=== PATIENT | male | born 1945 | race Caucasian/White ===

== ENCOUNTER 2023-08-25 10:09 | Emergency (ER) | payer MEDICARE, OTHER ==
[2023-08-25] MEDS ORDERED: Bacitracin 1 PK ONE (10:40)
[2023-08-25] MEDS ORDERED: Lidocaine 1% (PF) 30 ML VIAL ONE (10:41)
== END 2023-08-25 11:33 | disposition home or self-care (01) ==
LOC: NAV ERS 10:09
DX: S67.196A Crushing injury of right little finger, initial encounter (principal); S62.636A Displaced fracture of distal phalanx of right little finger, initial encounter for closed fracture; S61.216A Laceration without foreign body of right little finger without damage to nail, initial encounter; S60.151A Contusion of right little finger with damage to nail, initial encounter; I10 Essential (primary) hypertension; W23.1XXA Caught, crushed, jammed, or pinched between stationary objects, initial encounter; Z79.899 Other long term (current) drug therapy
CPT/HCPCS: 11740; 12002; J2001